=== PATIENT | female | born 2000 | race Caucasian/White ===

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

== ENCOUNTER 2018-04-11 21:53 | Emergency (ER) | payer OTHER ==
[~2018-04-11] VITALS: Ht 157.5 cm; Wt 59.9 kg
[~2018-04-11 21:53] MED LIST: IBUPROFEN200 M1 PO; NAPROSYN500 MG PO; ONDANSETRON ODT4 MG SL
[2018-04-11] MEDS ORDERED: ZOFRAN ODT4 MG PO (23:56)
== END 2018-04-12 00:05 | disposition home or self-care (01) ==
LOC: ED 21:53
DX: R10.9 Unspecified abdominal pain (principal); Z88.1 Allergy status to other antibiotic agents; Z88.6 Allergy status to analgesic agent
CPT/HCPCS: 80053; 81001; 83690; 84703; 85025; 85610; 85730; 99284; J7030